=== PATIENT | female | born 1980 | race Caucasian/White ===

== ENCOUNTER 2018-04-09 00:46 | Emergency (ER) | payer MEDICAID ==
[~2018-04-09] VITALS: Ht 167.6 cm; Wt 100.0 kg
[~2018-04-09 00:46] MED LIST: PRED20TA PO
[2018-04-09] MEDS ORDERED: methylPREDNISolone sod succ 125mg/2ml vial IV ONE (03:35)
[2018-04-09] MEDS ORDERED: normal saline 1000ML IV soln IVB ONE (03:35)
[2018-04-09 04:47] LABS: BASOPHILS % (AUTO) 0.3 % (0-1); EOSINOPHILS # (AUTO) 0.1 X10'3 (0-0.9); EOSINOPHILS % (AUTO) 0.5 % (0-6); HEMATOCRIT 43.9 % (35.0-45.0); HEMOGLOBIN 15.1 g/dl (12.0-16.0); LYMPHOCYTES # (AUTO) 1.9 X10'3 (1.1-4.8); LYMPHOCYTES % (AUTO) 13.2 % (21-51); MEAN CORPUSCULAR HEMOGLOBIN 32.4 PG (27.0-31.0); MEAN CORPUSCULAR HGB CONC 34.4 % (33.0-36.5); MEAN CORPUSCULAR VOLUME 94.2 FL (78-98); MEAN PLATELET VOLUME 8.9 FL (7.4-10.4); MONOCYTES # (AUTO) 1.1 X10'3 (0-0.9); MONOCYTES % (AUTO) 8.1 % (2-12); NEUTROPHILS % (AUTO) 77.9 % (42-75); PLATELET COUNT 247 X10'3 (140-440); RED BLOOD COUNT 4.66 X10'6 (4.20-5.60); RED CELL DISTRIBUTION WIDTH 12.8 % (11.5-14.5); WHITE BLOOD COUNT 14.1 X10'3 (4.5-11.0)
[2018-04-09 05:11] LABS: ALANINE AMINOTRANSFERASE 26 U/L (12-78); ALBUMIN 3.9 G/DL (3.4-5.0); ALBUMIN/GLOBULIN RATIO 1.2 (1.1-1.5); ALKALINE PHOSPHATASE 52 IU/L (46-116); ANION GAP 11 (8-16); ASPARTATE AMINO TRANSFERASE 10 U/L (10-37); BILIRUBIN,TOTAL 0.6 MG/DL (0.1-1.0); BLOOD UREA NITROGEN 14 MG/DL (7-18); BUN/CREATININE RATIO 15.9 (6.6-38.0); CALCIUM 8.9 MG/DL (8.5-10.1); CHLORIDE 103 MMOL/L (99-107); CREATININE 0.88 MG/DL (0.40-0.90); GLUCOSE 107 MG/DL (70-104); POTASSIUM 3.7 MMOL/L (3.5-5.1); SODIUM 138 MMOL/L (135-145); TOTAL CARBON DIOXIDE 24.3 MMOL/L (24-32); TOTAL PROTEIN 7.2 G/DL (6.4-8.2); eGFR 72 ML/MIN
[2018-04-09 05:14] LABS: D-DIMER 0.32 MG/L FEU (0-0.50); PROTHROMBIN TIME 9.9 SECONDS (9.0-12.0)
[2018-04-09 05:19] LABS: CKMB RELATIVE INDEX 1.3 RATIO (0-2.5); CREATINE KINASE 104 U/L (26-192); MAGNESIUM 1.8 MG/DL (1.5-2.4)
[2018-04-09 05:40] VITALS: BP 170/101
[2018-04-09] MEDS ORDERED: AZIT250T2 PO (05:40)
[2018-04-09] MEDS ORDERED: PRED20TA PO (05:40)
[2018-04-10] MEDS ORDERED: LORA1TAB PO (18:29)
== END 2018-04-09 06:04 | disposition home or self-care (01) ==
LOC: ER 00:47
DX: J40 Bronchitis, not specified as acute or chronic (principal); F12.90 Cannabis use, unspecified, uncomplicated; G89.29 Other chronic pain; Z79.899 Other long term (current) drug therapy; Z87.891 Personal history of nicotine dependence
CPT/HCPCS: 36415; 71045; 80053; 82550; 82553; 83735; 83880; 84484; 85025; 85379; 85610; 93005; 96374; 99285; A6258; J2930

== ENCOUNTER 2018-04-21 14:42 | Emergency (ER) | payer MEDICAID ==
[~2018-04-21] VITALS: Ht 167.6 cm; Wt 93.2 kg
[~2018-04-21 14:42] MED LIST changes: +LORA1TAB PO
[2018-04-21 14:48] VITALS: BP 151/86
[2018-04-21] MEDS ORDERED: PROP10TA10 PO (15:37)
== END 2018-04-21 15:55 | disposition home or self-care (01) ==
LOC: ER 14:42
DX: F41.9 Anxiety disorder, unspecified (principal); G89.29 Other chronic pain; F12.90 Cannabis use, unspecified, uncomplicated; Z98.890 Other specified postprocedural states; Z79.899 Other long term (current) drug therapy
CPT/HCPCS: 99284

== ENCOUNTER 2019-09-11 19:03 | Emergency (ER) | payer MEDICAID ==
[~2019-09-11] VITALS: Ht 167.6 cm; Wt 103.5 kg
[~2019-09-11 19:03] MED LIST changes: -LORA1TAB PO
[2019-09-11] MEDS ORDERED: dexamethasone 4mg tablet PO ONE (20:45)
[2019-09-11] MEDS ORDERED: famotidine/PF 10 mg/ml inj IV ONE (20:45)
[2019-09-11 21:10] LABS: CLARITY,URINE CLEAR (Clear); COLOR,URINE YELLOW (Yellow); GLUCOSE, URINE NEGATIVE (Neg); KETONES,URINE NEGATIVE (Neg); LEUKOCYTE ESTERASE ,URINE NEGATIVE (Neg); NITRITES, URINE NEGATIVE (Neg); OCCULT BLOOD,URINE NEGATIVE (Neg); PROTEIN,URINE NEGATIVE (Neg)
[2019-09-11 21:11] LABS: UA COLLECTION TYPE CLN CATCH MIDSTREAM
[2019-09-11] MEDS ORDERED: PRED20TA PO (21:15)
[2019-09-11 21:22] VITALS: BP 141/103
== END 2019-09-11 21:23 | disposition home or self-care (01) ==
LOC: ER 19:05
DX: L50.9 Urticaria, unspecified (principal); T78.40XA Allergy, unspecified, initial encounter; R30.0 Dysuria; G89.29 Other chronic pain; F41.9 Anxiety disorder, unspecified; F12.90 Cannabis use, unspecified, uncomplicated; Z98.890 Other specified postprocedural states; Z79.899 Other long term (current) drug therapy; X58.XXXA Exposure to other specified factors, initial encounter
CPT/HCPCS: 81003; 96374; 99283; J3490

== ENCOUNTER 2019-12-18 05:27 | Inpatient (IN) | payer MEDICAID ==
[2019-12-14 11:50] LABS: BASOPHILS % (AUTO) 0.7 % (0-1); EOSINOPHILS # (AUTO) 0.1 X10'3 (0-0.9); EOSINOPHILS % (AUTO) 1.9 % (0-6); LYMPHOCYTES # (AUTO) 1.4 X10'3 (1.1-4.8); LYMPHOCYTES % (AUTO) 20.1 % (21-51); MEAN CORPUSCULAR HEMOGLOBIN 32.6 PG (27.0-31.0); MEAN CORPUSCULAR HGB CONC 34.8 g/dL (33.0-36.5); MEAN CORPUSCULAR VOLUME 93.7 FL (78-98); MEAN PLATELET VOLUME 9.1 FL (7.4-10.4); MONOCYTES # (AUTO) 0.9 X10'3 (0-0.9); MONOCYTES % (AUTO) 12.5 % (2-12); NEUTROPHILS # (AUTO) 4.5 X10'3 (1.8-7.7); NEUTROPHILS % (AUTO) 64.8 % (42-75); PRE OP HEMATOCRIT 42.2 % (35.0-45.0); PRE OP HEMOGLOBIN 14.7 g/dL (12.0-16.0); PRE OP PLATELET COUNT 212 X10'3 (140-440); RED BLOOD COUNT 4.51 X10'6 (4.20-5.60); RED CELL DISTRIBUTION WIDTH 13.3 % (11.5-14.5)
[2019-12-14 11:54] LABS: CLARITY,URINE CLEAR (Clear); COLOR,URINE YELLOW (Yellow); GLUCOSE, URINE NEGATIVE (Neg); KETONES,URINE NEGATIVE (Neg); LEUKOCYTE ESTERASE ,URINE NEGATIVE (Neg); NITRITES, URINE NEGATIVE (Neg); OCCULT BLOOD,URINE NEGATIVE (Neg); PROTEIN,URINE NEGATIVE (Neg); UROBILINOGEN,URINE 0.2 E.U/dL (0.2-1.0)
[2019-12-14 11:59] LABS: PRE OP INR 0.9 INR; PRE OP PROTIME 9.8 SECONDS (9.0-12.0)
[2019-12-14 12:04] LABS: ALBUMIN 3.8 G/DL (3.4-5.0); ALBUMIN/GLOBULIN RATIO 1.1 (1.1-1.5); ALKALINE PHOSPHATASE 54 IU/L (46-116); BLOOD UREA NITROGEN 13 MG/DL (7-18); BUN/CREATININE RATIO 16.7 (6.6-38.0); CALCIUM 8.8 MG/DL (8.5-10.1); CHLORIDE 106 MMOL/L (99-107); CREATININE 0.78 MG/DL (0.40-0.90); PRE OP ALT 15 U/L (30-65); PRE OP ANION GAP 6 (8-16); PRE OP AST 15 U/L (10-37); PRE OP BILIRUB, TOTAL 0.3 MG/DL (0.0-1.0); PRE OP GLUCOSE 98 MG/DL (70-104); PRE OP POTASSIUM 4.2 MMOL/L (3.4-5.1); PRE OP SODIUM 139 MMOL/L (135-145); TOTAL CARBON DIOXIDE 27.1 MMOL/L (24-32); TOTAL PROTEIN 7.3 G/DL (6.4-8.2); eGFR 82 ML/MIN
[2019-12-14 12:18] LABS: UA COLLECTION TYPE CLN CATCH MIDSTREAM
[2019-12-14 12:35] LABS: HCG SERUM QL NEGATIVE
[2019-12-18] VITALS (18 sets, daily range): BP systolic 118–138; BP diastolic 60–86
[~2019-12-18] VITALS: Ht 167.6 cm; Wt 106.0 kg
[~2019-12-18 05:27] MED LIST changes: +CLON-513 PO; +ESCI-10 PO; +HYDR-3686 PO; +PRAZ2CAP2 PO; -PRED20TA PO; +PROP10TA10 PO; +TRAZ-251 PO
[2019-12-18] MEDS ORDERED: DOCUMENT DATE & TIME OF BETA-BLOCKER PO ONE (05:30)
[2019-12-18] MEDS ORDERED: ceFOXitin sod/dextrose 2g/50ml 50 ML IV ONE (05:30)
[2019-12-18] MEDS ORDERED: famotidine 20mg tablet PO ONE (05:30)
[2019-12-18] MEDS ORDERED: LIDOcaine 1% (10mg/ml) 2ml vial ONE (06:07)
[2019-12-18] MEDS: ringers solution, lacted 1,000 ML IV SCH ×6 (06:21→23:42)
[2019-12-18] MEDS ORDERED: MIDAZolam 5mg/5ml vial ONE (07:12)
[2019-12-18] MEDS ORDERED: fentaNYL /PF 50mcg/ml 5ml ampule ONE (07:12)
[2019-12-18] MEDS ORDERED: neostigmine methylsulfate 1 MG/ML 10ml vial ONE (07:15)
[2019-12-18] MEDS ORDERED: rocuronium 10mg/ml inj IV ONE ×2 (07:15→07:44)
[2019-12-18] MEDS ORDERED: glycopyrrolate 0.2mg/ml inj ONE (07:15)
[2019-12-18] MEDS ORDERED: LIDOcaine 2% (20mg/ml) 5ml vial ONE (07:15)
[2019-12-18] MEDS ORDERED: dexamethasone sod phosphate 4mg/ml inj. ONE (07:15)
[2019-12-18] MEDS ORDERED: propofol inj 20 ML IV ONE (07:15)
[2019-12-18] MEDS ORDERED: ondansetron/PF 4mg/2ml inj ONE (07:16)
[2019-12-18] MEDS ORDERED: ringers solution, lacted 1,000 ML IV SCH (07:19)
[2019-12-18] MEDS ORDERED: ondansetron/PF 4mg/2ml inj IV PRN ×2 (07:20→09:10)
[2019-12-18] MEDS ORDERED: morphine 4 MG/ML inj SYRINge IV PRN (07:20)
[2019-12-18] MEDS ORDERED: morphine 2 MG/ML inj. syringe IV PRN (07:20)
[2019-12-18] MEDS ORDERED: fentaNYL/PF 50MCG/1 ML 2ML syringe IV PRN ×2 (07:20)
[2019-12-18] MEDS ORDERED: hydrALAZINE 20mg/ml inj. IV PRN (07:20)
[2019-12-18] MEDS ORDERED: labetalol 20mg/4ml (5mg/ml) syringe IV PRN (07:20)
[2019-12-18] MEDS ORDERED: TRANEXAMIC ACID in 0.7% saline 1,000 MG/100 ML IVPB IV ONE (07:28)
[2019-12-18] MEDS ORDERED: sevoflurane 250ml liquid IH ONE (07:28)
[2019-12-18] MEDS ORDERED: atropine 0.4 mg/ml 20ml vial ONE (07:28)
[2019-12-18] MEDS ORDERED: TRANEXAMIC ACID 1 GM IN NACL,ISO-OS 100 ML IV ONE (08:00)
[2019-12-18] MEDS ORDERED: hydrALAZINE 20mg/ml inj. IV ONE (08:17)
--- NOTE | 2019-12-18 09:03 | NUR ---
Received from OR via SURGICAL BED , accompanied by Anesthesiologist ABBY and report given by Anesthesiolgist. PATTIENT WITH ABDOMINAL BINDER IN PLACE. NO DRAINS. DANIEL CATHETER IN PLACE WITH CLEAR YELLOW URINE IN ATRIUM. VSS. 10L MASK ON WITH 96% SATURATIONS. SCDS DONNED IN RR. Addendum: 12/18/19 at 0916 by Jw Naranjo RN, RN Amended: Links added.
[2019-12-18] MEDS ORDERED: HYDROcodone/acetaminophen 10/325mg tab PO PRN ×2 (09:10)
[2019-12-18] MEDS ORDERED: metoclopramide 5 mg/ml inj IV PRN (09:10)
[2019-12-18] MEDS ORDERED: LORazepam 2 mg/ml vial IV PRN (09:10)
[2019-12-18] MEDS ORDERED: naloxone 0.4 mg/ml inj IV PRN (09:10)
[2019-12-18] MEDS ORDERED: mag hydrox/Alum hydrox/simeth 30ml oral suspension PO PRN (09:10)
[2019-12-18] MEDS ORDERED: normal saline 500ml IV soln 500 ML IV PRN (09:10)
[2019-12-18] MEDS ORDERED: bisacodyl 10mg suppository rectal RC PRN (09:10)
[2019-12-18] MEDS ORDERED: temazepam 15mg capsule PO PRN (09:10)
[2019-12-18] MEDS ORDERED: diphenhydrAMINE 50 mg/ml inj IV PRN (09:10)
[2019-12-18] MEDS ORDERED: ketorolac trometh. 30mg/ml inj. IV PRN (09:10)
[2019-12-18] MEDS ORDERED: ketorolac tromethamine 15mg/ml inj. IV PRN (09:10)
[2019-12-18] MEDS ORDERED: morphine/NS 5 mg/ml CADD 50 ML IV SCH (09:10)
[2019-12-18] MEDS ORDERED: CADD PCA waste documentation MC PRN (09:10)
[2019-12-18] MEDS ORDERED: hydrOXYzine 25 MG tablet PO PRN (10:00)
[2019-12-18] MEDS ORDERED: clonazePAM 1mg tablet PO PRN (10:00)
[2019-12-18] MEDS ORDERED: traZODone 50mg tablet PO PRN (10:00)
--- NOTE | 2019-12-18 10:13 | NUR ---
ALL CRITERIA FOR TRANSFER TO THE FLOOR HAS BEEN ACHIEVED. VSS. BED LOW, CALL LIGHT AND VS. SET IN PLACE. RN PRESENT TO ACCEPT CARE. PATIENT RESTING COMFORTABLY IN BED. TWO BAGS OF BELONGINGS SENT WITH PATIENT. DRESSINGS CDI.PRISCILLA ADAMSON PRESENT AND AWARE PATIENT HAS ARRIVED. VSS. 2 HAT FORMING MACHINE OPERATOR PRESENT TO ASSIST WITH SET UP. Addendum: 12/18/19 at 1033 by Jw Naranjo RN, RN Amended: Links added.
[2019-12-18] MEDS: morphine/NS 5 mg/ml CADD 50 ML IV SCH ×7 (10:20→23:00)
[2019-12-18] MEDS: simethicone 80mg chew tab PO SCH ×2 (13:08→18:12)
[2019-12-18] MEDS: ibuprofen 200mg tablet PO SCH ×2 (14:18→19:32)
--- NOTE | 2019-12-18 18:20 | NUR ---
Problems reprioritized. Patient report given, questions answered & plan of care reviewed with [place] WELLS.
--- NOTE | 2019-12-18 18:30 | NUR ---
Patient in room [id number]. I have received report from PRISCILLA Alcazar and had the opportunity to ask questions and assume patient care.
[2019-12-18] MEDS: docusate sod 100mg capsule PO SCH (19:32)
[2019-12-18] MEDS: propranolol 10mg tablet PO SCH (19:32)
[2019-12-18] MEDS ORDERED: prazosin 1mg capsule PO SCH (21:00)
[2019-12-19] VITALS: BP 119/65
[2019-12-19] MEDS: morphine/NS 5 mg/ml CADD 50 ML IV SCH ×3 (01:00→05:00)
[2019-12-19] MEDS: ibuprofen 200mg tablet PO SCH ×2 (03:02→07:46)
[2019-12-19 05:22] LABS: BASOPHILS % (AUTO) 0.1 % (0-1); EOSINOPHILS % (AUTO) 0.1 % (0-6); HEMATOCRIT 39.8 % (35.0-45.0); HEMOGLOBIN 13.5 g/dl (12.0-16.0); LYMPHOCYTES # (AUTO) 1.5 X10'3 (1.1-4.8); LYMPHOCYTES % (AUTO) 10.4 % (21-51); MEAN CORPUSCULAR HEMOGLOBIN 31.8 PG (27.0-31.0); MEAN CORPUSCULAR HGB CONC 33.9 g/dL (33.0-36.5); MEAN CORPUSCULAR VOLUME 93.7 FL (78-98); MEAN PLATELET VOLUME 9.1 FL (7.4-10.4); MONOCYTES # (AUTO) 1.8 X10'3 (0-0.9); MONOCYTES % (AUTO) 12.8 % (2-12); NEUTROPHILS # (AUTO) 10.7 X10'3 (1.8-7.7); NEUTROPHILS % (AUTO) 76.6 % (42-75); PLATELET COUNT 200 X10'3 (140-440); RED BLOOD COUNT 4.25 X10'6 (4.20-5.60); RED CELL DISTRIBUTION WIDTH 13.3 % (11.5-14.5)
[2019-12-19 05:57] LABS: ALANINE AMINOTRANSFERASE 13 U/L (12-78); ALBUMIN 3.1 G/DL (3.4-5.0); ALKALINE PHOSPHATASE 48 IU/L (46-116); ANION GAP 6 (8-16); ASPARTATE AMINO TRANSFERASE 18 U/L (10-37); BILIRUBIN,TOTAL 0.6 MG/DL (0.1-1.0); BLOOD UREA NITROGEN 13 MG/DL (7-18); BUN/CREATININE RATIO 14.6 (6.6-38.0); CALCIUM 8.3 MG/DL (8.5-10.1); CHLORIDE 107 MMOL/L (99-107); CREATININE 0.89 MG/DL (0.40-0.90); GLUCOSE 113 MG/DL (70-104); POTASSIUM 3.5 MMOL/L (3.5-5.1); SODIUM 140 MMOL/L (135-145); TOTAL CARBON DIOXIDE 27.4 MMOL/L (24-32); TOTAL PROTEIN 6.3 G/DL (6.4-8.2); eGFR 71 ML/MIN
--- NOTE | 2019-12-19 06:15 | NUR ---
Problems reprioritized. Patient report given, questions answered & plan of care reviewed with PRISCILLA Wharton.
[2019-12-19 07:00] VITALS: BP 120/65
[2019-12-19] MEDS: docusate sod 100mg capsule PO SCH (07:45)
[2019-12-19] MEDS: simethicone 80mg chew tab PO SCH (07:46)
[2019-12-19] MEDS: propranolol 10mg tablet PO SCH (07:46)
[2019-12-19] MEDS ORDERED: citalopram 20mg tablet PO SCH (08:00)
[2019-12-19 11:21] VITALS: BP 111/67
--- NOTE | 2019-12-19 12:53 | NUR ---
patient states that she understands all discharge and follow up instructions. IV was removed with canula intact. Pt was safely taken down to private vehicle, where her mom will take her home.
== END 2019-12-19 12:56 | disposition home or self-care (01) | DRG 519 ==
LOC: PAS 05:27 → EDSTATUS 07:30 → SUR 3N 09:10
PROVIDERS: ADMIT Obstetrics & Gynecology; ATTEND Obstetrics & Gynecology
PROC: 0UT70ZZ Resection of Bilateral Fallopian Tubes, Open Approach (ICD-10-PCS; 2019-12-18)
PROC: 0UT90ZL Resection of Uterus, Supracervical, Open Approach (ICD-10-PCS; principal; 2019-12-18 07:28)
DX: D25.9 Leiomyoma of uterus, unspecified (principal); E66.01 Morbid (severe) obesity due to excess calories; I10 Essential (primary) hypertension; F32.9 Major depressive disorder, single episode, unspecified; F41.9 Anxiety disorder, unspecified; G47.00 Insomnia, unspecified; Z68.37 Body mass index [BMI] 37.0-37.9, adult
CPT/HCPCS: 36415; 80053; 81003; 82948; 84703; 85025; 85610; 85730; 86885; 86900; 86901; A4355; A4618; A7000; C1758; G0378; J0360; J0461; J0694; J1100; J2001; J2250; J2270; J2405; J2704; J2710; J3010; J3490; J7030; J7120